=== PATIENT | male | born 1985 | race American Indian/Alaskan Native ===

== ENCOUNTER 2018-01-21 12:17 | Emergency (ER) | payer SELFPAY ==
[2018-01-21 12:35] VITALS: BP 152/95
--- NOTE | 2018-01-21 13:15 | Emergency Department Report ---
ED General Adult HPI - General Chief complaint: Chest Pain Stated complaint: CHEST PAIN/MADELIN Time Seen by Provider: 01/21/18 13:09 Source: patient Mode of arrival: Ambulatory Limitations: No Limitations - History of Present Illness Initial comments: Patient is a 32-year-old [place] male has had chest pain off and on for the past 3 months. Patient states it's pain that is heavy sensation sometimes on the left and sometimes on the right. Patient denies any shortness of breat denies pleuritic component states has been no cough cold congestion diaphoresis fevers chills. Patient states is not worse with movement of his arms. Patient is a diesel truck technician. Patient does have a family history of sarcoidosis. - Related Data Previous Rx's Medication Instructions Recorded Last Taken Type Ibuprofen [Motrin] 800 mg PO Q8HR PRN #20 tablet 01/21/18 Unknown Rx Allergies Allergy/AdvReac Type Severity Reaction Status Date / Time No Known Allergies Allergy Unverified 01/21/18 12:35 ED Review of Systems ROS: Stated complaint: CHEST PAIN/MADELIN Other details as noted in HPI Comment: All other systems reviewed and negative ED Past Medical Hx - Past Medical History Previous Medical History?: No - Surgical History Past Surgical History?: No - Social History Smoking Status: Current Every Day Smoker Substance Use Type: None - Medications Home Medications: Home Medications Medication Instructions Recorded Confirmed Last Taken Type Ibuprofen [Motrin] 800 mg PO Q8HR PRN #20 tablet 01/21/18 Unknown Rx ED Physical Exam - General Limitations: No Limitations General appearance: alert, in no apparent distress - Head Head exam: Present: atraumatic, normocephalic - Eye Eye exam: Present: normal appearance - ENT ENT exam: Present: mucous membranes moist - Neck Neck exam: Present: normal inspection - Respiratory Respiratory exam: Present: normal lung sounds bilaterally. Absent: respiratory distress - Cardiovascular Cardiovascular Exam: Present: regular rate, normal rhythm. Absent: systolic murmur, diastolic murmur, rubs, gallop - GI/Abdominal GI/Abdominal exam: Present: soft, normal bowel sounds - Rectal Rectal exam: Present: deferred - Extremities Exam Extremities exam: Present: normal inspection - Back Exam Back exam: Present: normal inspection - Neurological Exam Neurological exam: Present: alert, oriented X3 - Psychiatric Psychiatric exam: Present: normal affect, normal mood - Skin Skin exam: Present: warm, dry, intact, normal color. Absent: rash ED Course Vital Signs 01/21/18 01/21/18 12:31 13:23 Temperature 98.2 F Pulse Rate 102 H Respiratory 16 16 Rate Blood Pressure 152/95 O2 Sat by Pulse 99 Oximetry ED Medical Decision Making - EKG Data -: EKG Interpreted by Me EKG shows normal: sinus rhythm, axis, intervals, QRS complexes, ST-T waves Rate: normal - EKG Data Interpretation: normal EKG - Radiology Data interpreted by me: Chest x-ray shows no acute process is a normal cardiac silhouette and no infiltrate or masses Critical care attestation.: If time is entered above; I have spent that time in minutes in the direct care of this critically ill patient, excluding procedure time. ED Disposition Clinical Impression: Atypical chest pain Disposition: DC-01 TO HOME OR SELFCARE Is pt being admited?: No Does the pt Need Aspirin: No Condition: Stable Instructions: Chest Pain (ED) Referrals: SERENA MONTE MD [Staff Physician] - 3-5 Days OMAR BHATIA MD [Staff Physician] - 3-5 Days Time of Disposition: 13:26
--- NOTE | 2018-01-21 13:46 | XRay Report ---
AP CHEST: HISTORY: chest pain AP view of the chest demonstrates a normal mediastinal and cardiac contour with clear lungs and normal bony and soft tissue structures. IMPRESSION: Unremarkable AP chest.
== END 2018-01-21 13:42 | disposition home or self-care (01) ==
LOC: ED 12:17
DX: R07.89 Other chest pain (principal); F17.200 Nicotine dependence, unspecified, uncomplicated
CPT/HCPCS: 71045; 93005; 93010; 99283

== ENCOUNTER 2018-04-22 17:48 | Emergency (ER) | payer SELFPAY ==
[2018-04-22] MEDS ORDERED: ASPIRIN PO ONE (18:12)
[2018-04-22 18:48] LABS: Basophils % (Auto) 0.3 % (0.0-1.8); Eosinophils % (Auto) 0.2 % (0.0-4.3); Hematocrit 46.2 % (35.5-45.6); Lymphocytes # (Auto) 1.4 K/mm3 (1.2-5.4); Lymphocytes % (Auto) 15.6 % (13.4-35.0); Mean Corpuscular HGB Conc 35 % (32-34); Mean Corpuscular Volume 85 fl (84-94); Monocytes # (Auto) 0.5 K/mm3 (0.0-0.8); Monocytes % (Auto) 5.9 % (0.0-7.3); Platelet Count 203 K/mm3 (140-440); Red Blood Count 5.43 M/mm3 (3.65-5.03); Red Cell Distribution Width 13.4 % (13.2-15.2)
[2018-04-22 19:03] LABS: BUN/Creatinine Ratio 9; Blood Urea Nitrogen 11 mg/dL (9-20); Calcium 9.2 mg/dL (8.4-10.2); Hemolysis Index 11
--- NOTE | 2018-04-22 21:34 | Emergency Department Report ---
ED Chest Pain HPI - General Chief Complaint: Chest Pain Stated Complaint: CHEST PAIN/MADELIN/NAUSEA Time Seen by Provider: 04/22/18 21:34 Source: patient, family Mode of arrival: Ambulatory Limitations: No Limitations - History of Present Illness Initial Comments: This is a 32-year-old male here report that he has midsternal chest pain 1 week. He has had similar episode on 01/21/2018 and he said he was referred to director of purchasing and they did ultrasound and said that his heart was fine. Patient denies any injury. He reports that the pain sometimes radiates from left to right on his chest. He said today he felt chilled and hard to breathe. Denies any shortness of breath at present. Pain 0 out of 10 and feels sharp and worse with taking a deep breath. Denies any nausea or vomiting. Denies any upper respiratory symptoms. He said he took Motrin without any relief and had some nausea but none right now. Patient denies any medical problem but asthma in childhood. Denies any swelling to the limbs. Denies any history of blood clots or family history of blood clots. Denies any clotting disorder. Denies any long distance travel, recent convalescent period or history of cancer. Denies taking any hormones. MD Complaint: chest pain -: This morning Onset: during rest Pain Location: substernal Pain Radiation: other (right chest the left chest) Severity: severe Severity scale (0 -10): 8 Quality: sharp Consistency: intermittent Improves With: nothing Worsens With: nothing Context: other (unknown) re: nausea. denies: vomting, diaphoresis, dyspnea, sense of impending doom Other Symptoms: other (chills). denies: cough, fever, syncope, rash, acid taste in mouth, leg swelling, palpitations, burping Treatments Prior to Arrival: other (Motrin) Aspirin use within the Past 7 Days: (0) No - Related Data On Oral Contraceptives: No Previous Rx's Medication Instructions Recorded Last Taken Type Ibuprofen [Motrin] 800 mg PO Q8HR PRN #20 tablet 01/21/18 Unknown Rx Naproxen [Naprosyn] 500 mg PO BID PRN #12 tablet 04/23/18 Unknown Rx predniSONE [Deltasone] 50 mg PO QDAY 5 Days #5 tab 04/23/18 Unknown Rx Allergies Allergy/AdvReac Type Severity Reaction Status Date / Time No Known Allergies Allergy Verified 04/22/18 21:37 Heart Score - HEART Score History: Slightly suspicious EKG: Normal Age: < 45 Risk factors: No known risk factors Troponin: < normal limit HEART Score: 0 - Critical Actions Critical Actions: 0-3 pts:0.9-1.7%risk of adverse cardiac event.Candidate for discharge ED Review of Systems ROS: Stated complaint: CHEST PAIN/MADELIN/NAUSEA Other details as noted in HPI Constitutional: chills. denies: fever Eyes: denies: eye discharge ENT: denies: ear pain, throat pain, congestion Respiratory: other (reports hard to breathe time 1 this morning but none since). denies: cough, shortness of breath, SOB with exertion, SOB at rest, stridor, w heezing Cardiovascular: chest pain. denies: palpitations, dyspnea on exertion, edema, syncope, paroxysmal nocturnal dyspnea Gastrointestinal: nausea. denies: abdominal pain, vomiting, diarrhea, constipation, hematemesis, melena, hematochezia Musculoskeletal: denies: back pain, joint swelling, arthralgia, myalgia Skin: denies: rash Neurological: denies: headache, weakness, numbness, paresthesias, confusion, abnormal gait ED Past Medical Hx - Past Medical History Previous Medical History?: Yes Hx Asthma: Yes (as a child) - Surgical History Past Surgical History?: No - Family History Family history: hypertension - Social History Smoking Status: Never Smoker Substance Use Type: None - Medications Home Medications: Home Medications Medication Instructions Recorded Confirmed Last Taken Type Ibuprofen [Motrin] 800 mg PO Q8HR PRN #20 tablet 01/21/18 Unknown Rx Naproxen [Naprosyn] 500 mg PO BID PRN #12 tablet 04/23/18 Unknown Rx predniSONE [Deltasone] 50 mg PO QDAY 5 Days #5 tab 04/23/18 Unknown Rx ED Physical Exam - General Limitations: No Limitations General appearance: alert, in no apparent distress - Head Head exam: Present: atraumatic, normocephalic, normal inspection, other (normal exam) - Eye Eye exam: Present: normal appearance, PERRL, EOMI Pupils: Present: normal accommodation - ENT ENT exam: Present: normal exam, normal orophraynx, mucous membranes moist, TM's normal bilaterally - Neck Neck exam: Present: normal inspection, full ROM. Absent: tenderness, lymphadenopathy - Respiratory Respiratory exam: Present: normal lung sounds bilaterally. Absent: respiratory distress, wheezes, rales, rhonchi, stridor, chest wall tenderness, accessory muscle use, decreased breath sounds, prolonged expiratory - Cardiovascular Cardiovascular Exam: Present: normal rhythm, tachycardia, normal heart sounds. Absent: systolic murmur, diastolic murmur - GI/Abdominal GI/Abdominal exam: Present: soft, normal bowel sounds. Absent: distended, tenderness, guarding, rebound, rigid, organomegaly - Extremities Exam Extremities exam: Present: normal inspection, full ROM, normal capillary refill, other (No cce. + 2 pulses in all extremities, no neurovascular compromise). Absent: tenderness, pedal edema, joint swelling, calf tenderness - Back Exam Back exam: Present: normal inspection, full ROM, other (ambulate without any difficulties). Absent: tenderness, CVA tenderness (R), CVA tenderness (L), muscle spasm, paraspinal tenderness, vertebral tenderness, rash noted - Neurological Exam Neurological exam: Present: alert, oriented X3, normal gait, reflexes normal. Absent: motor sensory deficit - Psychiatric Psychiatric exam: Present: normal affect, normal mood - Skin Skin exam: Present: warm, dry, intact, normal color. Absent: rash ED Course Vital Signs 04/22/18 04/22/18 04/22/18 18:07 22:28 23:55 Temperature 98 F 97.5 F L Pulse Rate 136 H 98 H Respiratory 16 18 18 Rate Blood Pressure 136/89 Blood Pressure 120/75 [Right] O2 Sat by Pulse 100 98 Oximetry - Reevaluation(s) Reevaluation #1: 04/22/18 22:24 Patient received Toradol 30 mg IM without relief of pain. He also received aspirin 325 mg earlier today. Reevaluation #2: 04/23/18 01:42 He received 1 L of normal saline, Zofran 4 mg IV and morphine 4 mg IV which r elieved this pain. JJ score - Jj Score Age > 65: (0) No Aspirin use within the Past 7 Days: (0) No 3 or more CAD Risk Factors: (0) No 2 or more Angina events in past 24 hrs: (0) No Known CAD with more than 50% Stenosis: (0) No Elevated Cardiac Markers: (0) No ST Deviation Greater than 0.5mm: (0) No JJ Score: 0 ED Medical Decision Making - Lab Data Result diagrams: 04/22/18 18:24 04/22/18 18:24 Lab Results 04/22/18 04/22/18 04/22/18 Range/Units 18:24 18:24 21:51 WBC 9.3 (4.5-11.0) K/mm3 RBC 5.43 H (3.65-5.03) M/mm3 Hgb 16.0 H (11.8-15.2) gm/dl Hct 46.2 H (35.5-45.6) % MCV 85 (84-94) fl MCH 29 (28-32) pg MCHC 35 H (32-34) % RDW 13.4 (13.2-15.2) % Plt Count 203 (140-440) K/mm3 Lymph % (Auto) 15.6 (13.4-35.0) % [place] % (Auto) 5.9 (0.0-7.3) % Eos % (Auto) 0.2 (0.0-4.3) % Baso % (Auto) 0.3 (0.0-1.8) % Lymph # 1.4 (1.2-5.4) K/mm3 [place] # 0.5 (0.0-0.8) K/mm3 Eos # 0.0 (0.0-0.4) K/mm3 Baso # 0.0 (0.0-0.1) K/mm3 Seg Neutrophils % 78.0 H (40.0-70.0) % Seg Neutrophils # 7.3 (1.8-7.7) K/mm3 Sodium 140 (137-145) mmol/L Potassium 4.1 (3.6-5.0) mmol/L Chloride 103.2 (98-107) mmol/L Carbon Dioxide 27 (22-30) mmol/L Anion Gap 14 mmol/L BUN 11 (9-20) mg/dL Creatinine 1.2 (0.8-1.5) mg/dL Estimated GFR > 60 ml/min BUN/Creatinine Ratio 9 % Glucose 111 H (75-100) mg/dL Calcium 9.2 (8.4-10.2) mg/dL Troponin T < 0.010 < 0.010 (0.00-0.029) ng/mL - EKG Data -: EKG Interpreted by Me (Attending physician) EKG shows normal: sinus rhythm (73 beats per minute. Patient had additional EKG showed sinus bradycardia at 58 bpm without any acute ST abnormality. Dr. Nguyen read EKG) - EKG Data Interpretation: nonspecific ST-T wave mayank - Radiology Data Radiology results: report reviewed CTA chest dictated by radiologist and report reviewed byy myself. No acute findings Findings [facility] [address] [place] [address] Cat Scan Report Signed Patient: LUIS GRAHAM MR#: [id number] : 1985 Acct:[id number] Age/Sex: 32 / M ADM Date: 04/22/18 Loc: ED Attending Dr: Ordering Physician: HAYDEN ALLISON Date of Service: 04/22/18 Procedure(s): CT angio chest Accession Number(s): [id number] cc: HAYDEN ALLISON FINAL REPORT PROCEDURE: CT angiogram chest with contrast. TECHNIQUE: Computerized tomographic angiography of the chest was performed after the IV injection of iodinated nonionic contrast including image processing. The image data was postprocessed using 2- dimensional multiplanar reformatted (MPR) and 3-dimensional (MIP and/or volume rendered) techniques. HISTORY: Chest pain and shortness of breath. COMPARISON: No prior studies are available for comparison. FINDINGS: The trachea and central bronchi appear normal. The lungs are clear and well expanded. There are no pleural effusions. The thoracic aorta has a normal caliber. There are no signs of an aortic dissection. The pulmonary arteries enhance normally. There are no signs of pulmonary embolism. There is no mediastinal adenopathy. The heart size is normal. The thoracic skeleton appears intact. IMPRESSION: Normal study. Transcribed By: MRM Dictated By: KRISTIAN AGUSTIN MD Electronically Authenticated By: KRISTIAN AGUSTIN MD Signed Date/Time: 04/22/182314 DD/ 17 TD/TT: 04/22/182317 - Medical Decision Making This is a 32-year-old male patient that was here in January for chest pain and he is now here for chest pain again. He said this started this morning and initially had some nausea with some difficulty breathing but that has resolved. He said he was referred to director of purchasing and they did ultrasound and said that his heart was fine. He said they also did other tests then and told him that his heart was fine. Patient does not have a primary care doctor. Patient had EKG done 2 which shows no acute finding heart rate ranges from 58 bpm to 73 bpm. This case was presented to Dr. Nguyen and he agrees the patient can follow-up outpatient. He also agree patient needs to be treated for pleurisy. Patient had troponin 2 which were negative. He also had CT and daily at bedtime which shows no acute findings. CBC and BMP stable. H&H is elevated which shows some hemoconcentration so he was given 1 L of normal saline. Patient was given aspirin 325 mg initially and Toradol 30 mg IM which did not relieve his pain he was given morphine 4 mg IV and Zofran 4 mg IV when she forcefully for pain. I discussed the patient that he needs to follow up with primary care doctor along with director of purchasing and I also discussed diagnosis, laboratory findings and CT findings the patient. He does not have access to primary care*for [facility] and also to Dr. Annie Reyes was a director of purchasing. His also is a smoker and I discussed him that he needs to follow up with lung doctor for pulmonary function tests. Smoking cessation encouraged and he voiced understanding. Patient discharged home in stable condition with prescription for naproxen and prednisone. JJ score and hard score is 0. Vitals signs stable and is afebrile and nontoxic in appearance - Differential Diagnosis PE,PNA,ACS, ATYPICAL CP Pleurisy, costhrocfondritis Critical care attestation.: If time is entered above; I have spent that time in minutes in the direct care of this critically ill patient, excluding procedure time. ED Disposition Clinical Impression: Pleuritic chest pain, Nicotine abuse Disposition: DC-01 TO HOME OR SELFCARE Is pt being admited?: No Does the pt Need Aspirin: No Condition: Stable Instructions: Chest Pain (ED), Pleurisy (ED), How to Stop Smoking (ED) Additional Instructions: Follow-up with director of purchasing and lung doctor as discussed. Please see referral and discharge instruction paperwork Follow up [facility] for primary care, You can also follow-up at the [facility] or [facility]. Call to schedule an appointment for visit in 2 days Take medication as prescribed Stop smoking if Increase fluid intake Referrals: PRIMARY CARE, [Primary Care Provider] - 04/24/18 RACIEL REYES MD [Staff Physician] - 04/24/18 IESHA FAGAN MD [Staff Physician] - 04/24/18 Forms: Work/School Release Form(ED), Accompanied Note
[2018-04-22] MEDS ORDERED: TORADOL IM ONE (21:37)
[2018-04-22] MEDS ORDERED: NACL 0.9% 1000 ML 1,000 ML IV ONE (21:37)
[2018-04-22] MEDS ORDERED: MORPHINE IV ONE (23:12)
[2018-04-22] MEDS ORDERED: ZOFRAN IV ONE (23:12)
[2018-04-22] MEDS ORDERED: MORPHINE ONE (23:13)
[2018-04-22] MEDS ORDERED: ZOFRAN ONE (23:13)
--- NOTE | 2018-04-22 23:15 | Cat Scan Report ---
FINAL REPORT PROCEDURE: CT angiogram chest with contrast. TECHNIQUE: Computerized tomographic angiography of the chest was performed after the IV injection of iodinated nonionic contrast including image processing. The image data was postprocessed using 2-dim ensional multiplanar reformatted (MPR) and 3-dimensional (MIP and/or volume rendered) techniques. HISTORY: Chest pain and shortness of breath. COMPARISON: No prior studies are available for comparison. FINDINGS: The trachea and central bronchi appear normal. The lungs are clear and well expanded. There are no pl eural effusions. The thoracic aorta has a normal caliber. There are no signs of an aortic dissection. The pulmonary arteries enhance normally. There are no signs of pulmonary embolism. There is no media stinal adenopathy. The heart size is normal. The thoracic skeleton appears intact. IMPRESSION: Normal study.
[2018-04-22 23:57] VITALS: BP 120/75
== END 2018-04-23 02:25 | disposition home or self-care (01) ==
LOC: ED 17:48
DX: R07.1 Chest pain on breathing (principal); J45.909 Unspecified asthma, uncomplicated; F17.200 Nicotine dependence, unspecified, uncomplicated
CPT/HCPCS: 36415; 71275; 80048; 84484; 85025; 93005; 93010; 96372; 96374; 96375; 99284; J1885; J2270; J2405; J7030; Q9967